=== PATIENT | female | born 1960 | race Caucasian/White ===

== ENCOUNTER 2016-12-30 05:54 | Emergency (ER) | payer BC ==
[~2016-12-30] VITALS: Ht 157.5 cm; Wt 75.2 kg
[~2016-12-30 05:54] MED LIST: ATORVASTATIN CA20 MG PO; CYMBALTA60 MG PO; HYDROCHLOROTH12.5 M3 PO; PAXIL20 MG PO; PROBIOTIC1 EAC2 PO; TOPIRAMATE50 MG PO
[2016-12-30] MEDS ORDERED: COLCHICINE0.6 M1 PO (06:37)
[2016-12-30 06:58] VITALS: BP 116/83
== END 2016-12-30 07:15 | disposition home or self-care (01) ==
LOC: EME 05:54
DX: M10.071 Idiopathic gout, right ankle and foot (principal); Z89.422 Acquired absence of other left toe(s); F17.200 Nicotine dependence, unspecified, uncomplicated
CPT/HCPCS: 99281; 99283